=== PATIENT | female | born 1975 | race Asian ===

== ENCOUNTER 2017-07-18 16:25 | Emergency (ER) | payer OTHER ==
[2017-07-18 16:29] VITALS: TEMP 98.6; BMI 33.3
[2017-07-18] MEDS ORDERED: FAMOTIDINE 20 MG/50 ML IVPB 20 MG/50 ML MG IVPB ONE ×4 (17:44→22:00)
[2017-07-18] MEDS ORDERED: ONDANSETRON 4 MG/2 ML VIAL IVPUSH ONE (17:44)
[2017-07-18] MEDS ORDERED: SODIUM CHLORIDE 1,000 ML IV STA (17:44)
[2017-07-18] MEDS ORDERED: ACETAMINOPHEN 1000 MG/100 ML VIAL (NON FORMULARY) IVPB ONE (17:49)
[2017-07-18] MEDS ORDERED: MAG HYDROX/AL HYDROX/SIMETH 30 ML UNIT-DOSE CUP PO ONE (17:49)
--- NOTE | 2017-07-18 17:56 | PDOC ---
History of Present Illness - General Chief Complaint: Pain Stated Complaint: STOMACH PAIN Time Seen by Provider: 07/18/17 17:33 History Source: Patient Exam Limitations: No Limitations - History of Present Illness Initial Comments: 07/18/17 17:46 Patient is a 41F with history of HTN here today complaining of generalized abdominal pain and diarrhea for one day. Denies blood in diarrhea. Patient endorses decreased PO intake. Last bowel movement today. Has withheld PO intake today due to nausea and diarrhea. Denies vomiting. LMP 5 weeks ago. The abdominal pain is worse in the epigastrium. Denies fevers, chills, vomiting. Denies sick contacts. Denies contacts having similar symptoms. Patient states that she's had abdominal pain episodically for several months, and has an ultrasound done as part of her workup which was negative. She denies smoking, alcohol, and illicit drug use. She works as a nurse at [employer]. Past History - Past Medical History Allergies/Adverse Reactions: Allergies Allergy/AdvReac Type Severity Reaction Status Date / Time Penicillins Allergy Verified 07/18/17 16:30 CVA: No COPD: No DVT: No - Suicide/Smoking/Psychosocial Hx Smoking History: Never smoked Hx Alcohol Use: No Drug/Substance Use Hx: No Substance Use Type: None Review of Systems - Review of Systems Comments:: 07/18/17 17:58 GENERAL/CONSTITUTIONAL: No fever or chills. No weakness. HEAD, EYES, EARS, NOSE AND THROAT: No change in vision. No sore throat. CARDIOVASCULAR: No chest pain or shortness of breath RESPIRATORY: No cough, wheezing, or hemoptysis. GASTROINTESTINAL: Positive for nausea and diarrhea. Negative for constipation and vomiting. GENITOURINARY: No dysuria, frequency, or change in urination. SKIN: No rash NEUROLOGIC: No headache, vertigo, loss of consciousness, or change in strength/ sensation. HEMATOLOGIC/LYMPHATIC: No anemia, easy bleeding, or history of blood clots. ALLERGIC/IMMUNOLOGIC: No hives or skin allergy. *Physical Exam - Vital Signs Last Vital Signs Temp Pulse Resp BP Pulse Ox 98.6 F 107 H 20 159/101 99 07/18/17 16:26 07/18/17 16:26 07/18/17 16:26 07/18/17 16:26 07/18/17 16:26 - Physical Exam Comments: 07/18/17 17:59 GENERAL: Awake, alert, and fully oriented, in no acute distress HEAD: No signs of trauma, normocephalic, atraumatic EYES: PERRLA, EOMI, sclera anicteric, conjunctiva clear ENT: Auricles normal inspection, hearing grossly normal, nares patent, oropharynx clear without exudates. Moist mucosa NECK: Normal ROM, supple, no lymphadenopathy, JVD, or masses LUNGS: No distress, speaks full sentences, clear to auscultation bilaterally HEART: Regular rate and rhythm, normal S1 and S2, no murmurs, rubs or gallops, peripheral pulses normal and equal bilaterally. ABDOMEN: Soft, tender in RUQ. Rodriguez negative. No guarding, no rebound. No masses EXTREMITIES: Normal inspection, Normal range of motion, no edema. No clubbing or cyanosis. NEUROLOGICAL: Cranial nerves II through XII grossly intact. Normal speech, normal gait, no focal sensorimotor deficits SKIN: Warm, Dry, normal turgor, no rashes or lesions noted. Medical Decision Making - Medical Decision Making 07/18/17 18:00 41F with history of HTN here today complaining of ruq abdominal pain. Vital signs notable for tachycardia to 107. PE notable for RUQ tenderness. Will treat with fluids, iv tylenol, zofran, pepcid, maalox. Will evaluate with CBC, CMP, UA , Upreg, Lipase, RUQ ultrasound. 07/18/17 19:13 Ultrasound performed. Labs yet to be drawn. Signed out to Dr Ayala. *DC/Admit/Observation/Transfer Diagnosis at time of Disposition: Abdominal pain - Referrals Referrals: Campos Christian [Primary Care Provider] - - Patient Instructions - Post Discharge Activity
--- NOTE | 2017-07-18 18:10 | PDOC ---
Attending Attestation - Resident Resident Name: OrtegashamekaBairon - ED Attending Attestation I have performed the following: I have examined & evaluated the patient, The case was reviewed & discussed with the resident, I agree w/resident's findings & plan, Exceptions are as noted - Medical Decision Making 07/18/17 18:05 A portion of this note was written by my scribe, under my supervision. 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 The patient reported waking up this morning she had several loose stools and general is abdominal discomfort. Digital nauseous but denied vomiting. Denies fevers or chills. Denies sick contacts or recent travels. Patient reported that she did have similar symptoms 3 months ago where she was worked up by her primary care physician with an outpatient abdominal ultrasound which demonstrated no gallstones or other acute findings. She denies dysuria or urinary frequency. Denies prior history of MEDIA PROFESSIONAL history. I agree with the resident's plan for investigating this including blood work, urine analysis, urine test, and right upper quadrant abdominal ultrasound. We'll need to rule out biliary colic, gastritis, gastroenteritis. Given no abdominal tenderness in the lower portions, less suspicious for acute appendicitis. <Aravind Kern - Last Filed: 07/18/17 18:04> - HPI HPI: 07/18/17 18:32 The patient is a 41 year old female, with a significant past medical history of HTN, who presents to the emergency department with, diffuse abdominal pain and diarrhea. She reports her abdominal pain has been going on for 3 months but localized to the upper quadrant. Today she reports it has spread diffusely around her abdomen. Secondary to her symptoms, she reports nausea. 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 She denies recent fevers, chills, headache or dizziness. She denies recent constipation. She denies recent dysuria, frequency, urgency or hematuria. She denies recent chest pain or shortness of breath. Allergies: NKA Past surgical history: None reported. Social history: Nonsmoker. Denies EtOH use and recreational drug use. Documentation prepared by Ankita Wiseman, acting as medical insurance clerk for Aravind Kern MD. - Physicial Exam PE: 07/18/17 18:32 GENERAL: Awake, alert, and fully oriented, in no acute distress HEAD: No signs of trauma EYES: PERRLA, EOMI, sclera anicteric, conjunctiva clear ENT: Auricles normal inspection, hearing grossly normal, nares patent, oropharynx clear without exudates. Moist mucosa NECK: Normal ROM, supple, no lymphadenopathy, JVD, or masses LUNGS: Breath sounds equal, clear to auscultation bilaterally. No wheezes, and no crackles HEART: Regular rate and rhythm, normal S1 and S2, no murmurs, rubs or gallops ABDOMEN: +Right epigastric tenderness. Soft, normoactive bowel sounds. No guarding, no rebound. No masses EXTREMITIES: Normal range of motion, no edema. No clubbing or cyanosis. No cords, erythema, or tenderness NEUROLOGICAL: Cranial nerves II through XII grossly intact. Normal speech, normal gait SKIN: Warm, Dry, normal turgor, no rashes or lesions noted. <Ankita Wiseman - Last Filed: 07/18/17 18:32> - Medical Decision Making 07/18/17 21:06 Patient Name: ALANNA VILLASENOR THIS IS A PRELIMINARY REPORT FROM [facility]NAGER EXAM: Right upper quadrant ultrasound IMAGES: 50 DATE OF EXAM: 2017-07-18 18:15:04 REASON FOR EXAM: Right upper quadrant pain COMPARISON: None. FINDINGS: No sonographic evidence for cholelithiasis or acute cholecystitis. No evidence of biliary obstruction. Limited evaluation of the pancreatic head and body is grossly unremarkable. Hepatic steatosis. The right kidney is within normal limits without hydronephrosis. THIS DOCUMENT HAS BEEN ELECTRONICALLY SIGNED <Marge Higgins - Last Filed: 07/18/17 21:06>
[2017-07-18] MEDS ORDERED: ACETAMINOPHEN INJECTION 100 ML IVPB ONE (18:53)
[2017-07-18] MEDS ORDERED: ONDANSETRON 4 MG/2 ML VIAL ONE (18:53)
[2017-07-18] MEDS ORDERED: MAG HYDROX/AL HYDROX/SIMETH 30 ML UNIT-DOSE CUP ONE (18:53)
--- NOTE | 2017-07-18 19:33 | PDOC ---
*Physical Exam - Vital Signs Last Vital Signs Temp Pulse Resp BP Pulse Ox 98.6 F 107 H 20 159/101 99 07/18/17 16:26 07/18/17 16:26 07/18/17 16:26 07/18/17 16:26 07/18/17 16:26 ED Treatment Course - LABORATORY CBC & Chemistry Diagram: 07/18/17 19:32 07/18/17 20:48 Medical Decision Making - Medical Decision Making 07/18/17 19:31 The patient was signed out to me by Dr. Kee, day team. The patient is a 41F who is presenting with abdominal pain. She has tenderness in RUQ, pending RUQ U/S and labs. Negative jalloh's sign. Will reevaluate. Dispo most likely home unless abnormal labs and/or imaging. 07/18/17 20:31 RUQ U/S negative except for hepatic steatosis. 07/18/17 21:03 Pt is still complaining of epigastric pain. UA indicative of UTI. Will give abx while pt is in facility, bactrim. *DC/Admit/Observation/Transfer Diagnosis at time of Disposition: Abdominal pain Qualifiers: Abdominal location: epigastric Qualified Code(s): R10.13 - Epigastric pain - Discharge Dispostion Disposition: HOME Condition at time of disposition: Stable Admit: No - Prescriptions Prescriptions: Sulfamethoxazole/Trimethoprim [Bactrim Ds -] 1 tab PO BID #5 tablet MDD 2 - Referrals Referrals: Campos Christian [Primary Care Provider] - - Patient Instructions Printed Discharge Instructions: DI for Gastroesophageal Reflux Disease (GERD), DI for Epigastric Pain Additional Instructions: Please return to the ER if symptoms persist, worsen, or new symptoms arise. Please follow up with your primary care physician in 2-3 days. Please return to the ER if you have any signs or symptoms of chest pain, shortness of breath, uncontrollable fever, chills, nausea, vomiting, numbness, tingling, or weakness in any part of your body, changes in vision, or slurred speech. Please take your medications as prescribed. - Post Discharge Activity
[2017-07-18 19:43] LABS: BASO % 0.8 % (0-2.0); HEMATOCRIT 43.6 % (32.4-45.2); HEMOGLOBIN 14.7 GM/dL (10.7-15.3); LYMPH % 14.6 % (8-40); MCH 28.9 pg (25.7-33.7); MCHC 33.8 g/dl (32.0-36.0); MEAN CELL VOLUME 85.7 fl (80-96); MEAN PLT VOLUME 7.8 fl (7.5-11.1); MONO % 7.6 % (3.8-10.2); PLATELET COUNT 295 K/MM3 (134-434); RBC 5.09 M/mm3 (3.60-5.2); RDW 12.5 % (11.6-15.6); WHITE BLOOD COUNT 9.5 K/mm3 (4.0-10.0)
[2017-07-18 19:53] LABS: URINE APPEARANCE CLEAR; URINE BILIRUBIN NEGATIVE (NEGATIVE); URINE BLOOD 1+ (NEGATIVE); URINE COLOR YELLOW; URINE GLUCOSE (UA) NEGATIVE (NEGATIVE); URINE KETONE NEGATIVE (NEGATIVE); URINE NITRITE NEGATIVE (NEGATIVE); URINE PROTEIN NEGATIVE (NEGATIVE)
[2017-07-18 19:54] LABS: URINE LEUK ESTERASE 1+ (NEGATIVE)
[2017-07-18 19:56] LABS: EPI CELLS RARE /HPF (FEW); URINE BACTERIA RARE /hpf (NONE SEEN); URINE MUCUS MODERATE
[2017-07-18] MEDS ORDERED: PANTOPRAZOLE SODIUM 40 MG in SODIUM CHLORIDE 100 ML IVPB ONE (20:52)
[2017-07-18] MEDS ORDERED: PANTOPRAZOLE SODIUM 40 MG VIAL ONE (20:54)
[2017-07-18] MEDS ORDERED: SULFAMETHOXAZOLE/TRIMETHOPRIM 800MG/160MG D.S. TABLET PO ONE (21:07)
[2017-07-18 21:26] LABS: ALBUMIN 3.2 g/dl (3.4-5.0); ANION GAP 9 (8-16); BILIRUBIN,TOTAL 0.4 mg/dL (0.2-1.0); BLOOD UREA NITROGEN 6 mg/dL (7-18); CALCIUM 7.2 mg/dL (8.5-10.1); CHLORIDE 108 mmol/L (98-107); CO2 22 mmol/L (21-32); CREATININE 0.5 mg/dL (0.55-1.02); GLUCOSE,RANDOM 102 mg/dL (74-106); POTASSIUM 3.4 mmol/L (3.5-5.1); SGOT/AST 8 U/L (15-37); SODIUM 139 mmol/L (136-145); TOT PROT 6.7 g/dl (6.4-8.2)
[2017-07-18 21:32] LABS: ALK PHOS 67 U/L (45-117); SGPT/ALT 18 U/L (12-78)
[2017-07-18 22:22] VITALS: BP 141/91; PULSE 86
== END 2017-07-18 22:24 | disposition home or self-care (01) ==
LOC: JER 16:25
PROC: 3E033GC Introduction of Other Therapeutic Substance into Peripheral Vein, Percutaneous Approach (ICD-10-PCS; principal; 2017-07-18)
PROC: 3E033GC Introduction of Other Therapeutic Substance into Peripheral Vein, Percutaneous Approach (ICD-10-PCS; 2017-07-18)
PROC: 3E033GC Introduction of Other Therapeutic Substance into Peripheral Vein, Percutaneous Approach (ICD-10-PCS; 2017-07-18)
PROC: 3E033GC Introduction of Other Therapeutic Substance into Peripheral Vein, Percutaneous Approach (ICD-10-PCS; 2017-07-18)
PROC: 3E033NZ Introduction of Analgesics, Hypnotics, Sedatives into Peripheral Vein, Percutaneous Approach (ICD-10-PCS; 2017-07-18)
DX: R10.13 Epigastric pain (principal)
CPT/HCPCS: 36415; 76705-TC; 80053; 81003; 81015; 84703; 85025; 99282-25